=== PATIENT | female | born 1965 | race Caucasian/White ===

== ENCOUNTER 2016-10-28 05:36 | Outpatient (CLI) | payer OTHER ==
[~2016-10-28] VITALS: Ht 158.8 cm; Wt 61.2 kg
[2016-10-28] MEDS ORDERED: CITA10TA7 PO (12:30)
[2016-10-28] MEDS ORDERED: MONT10TA21 PO (12:30)
== END 2016-10-28 12:35 ==
LOC: PREOP 05:36
PROVIDERS: ATTEND Internal Medicine
DX: Z01.818 Encounter for other preprocedural examination (principal); Z12.11 Encounter for screening for malignant neoplasm of colon; Z83.71 Family history of colonic polyps

== ENCOUNTER 2016-10-30 07:33 | Day surgery (SDC) | payer OTHER ==
[~2016-10-30] VITALS: Ht 158.8 cm; Wt 61.2 kg
[~2016-10-30 07:33] MED LIST: CITA10TA7 PO; MONT10TA21 PO
[2016-10-30 07:45] VITALS: BP 127/74
--- NOTE | 2016-10-30 07:45 | Pre-Op Note & Conscious Sedat ---
Pre-Operative Progress Note H&P Reviewed The H&P was reviewed, patient examined and no changes noted. Date H&P Reviewed: Oct 30, 2016 Time H&P Reviewed: 07:45 Conscious Sedation Pre-Proced ASA Class: 1 Airway Mallampati Classification: ([place] appropriate class) I. II. III, IV Lungs Heart ASA score ASA 1: a normal healthy patient ASA 2: a patient with a mild systemic disease (mid diabetes, controlled hypertension, obesity ASA 3: a patient with a severe systemic disease that limits activity (angina , COPD, prior Myocardial infarction) ASA 4: a patient with an incapacitating disease that is a constant threat to life (CHF, renal failure) ASA 5: a moribund patient not expected to survive 24 hrs. (ruptured aneurysm) ASA 6: a declared brain patient whose organs are being harvested. For emergent operations, add the letter E after the classification Grade 2 Sedation Plan: Analgesia, Amnesia, Plan communicated to team members, Discussed options with patient/fam, Discussed risks with patient/fam Note The patient is an appropriate candidate to undergo the planned procedure, sedation, and anesthesia. The patient immediately re-assessed prior to indication. LINDEN PENNY MD Oct 30, 2016 07:45
[2016-10-30] MEDS ORDERED: 1/2 NS IV SOLUTION 1,000 ML IV PRN (08:00)
[2016-10-30] MEDS ORDERED: LIDOCAINE JELLY 2% (XYLOCAINE) 5 ML TUBE MM PRN (08:00)
[2016-10-30] MEDS ORDERED: 1/2 NS IV SOLUTION 1,000 ML IV ONE ×2 (08:10→08:43)
[2016-10-30] MEDS ORDERED: MIDAZOLAM 2 MG/2 ML (VERSED) VIAL ONE (08:39)
[2016-10-30] MEDS ORDERED: LIDOCAINE JELLY 2% (XYLOCAINE) 5 ML TUBE ONE (08:39)
[2016-10-30] MEDS ORDERED: fentaNYL INJECTION 100 MCG/2 ML AMP ONE ×2 (08:39→09:06)
[2016-10-30] MEDS: fentaNYL INJECTION 100 MCG/2 ML AMP IVP PRN ×3 (08:53→09:10)
[2016-10-30] MEDS: MIDAZOLAM 2 MG/2 ML (VERSED) VIAL IVP PRN ×2 (08:54→09:06)
[2016-10-30] MEDS ORDERED: ONDANSETRON 4 MG/2 ML (SDV) Z0FRAN ONE (09:07)
[2016-10-30] MEDS ORDERED: ONDANSETRON 4 MG/2 ML (SDV) Z0FRAN IVP PRN (09:10)
[2016-10-30 10:00] VITALS: BP 122/69
[2016-10-30 10:25] VITALS: BP 119/77
--- NOTE | 2016-11-02 01:33 | OPERATIVE REPORT ---
PROCEDURE PHYSICIAN: LINDEN PENNY DATE OF PROCEDURE: 10/30/2016 COLONOSCOPY SUMMARY: The patient underwent screening colonoscopy today. There is a reported family history for colon polyps, in this case being her mother. PROCEDURE: The patient was placed in lateral decubitus position. Prior to undergoing colonoscopy, digital rectal evaluation was performed. Anal sphincter tone was normal and the perianal reflex was intact. No abnormalities were noted to digital inspection of the anal canal or distal rectal vault. The colonoscope was then inserted into the rectum and under direct visualization, advanced to the cecum. The cecum was identified by identification of the ileocecal valve and cecal strap. Photographic documentation was obtained. Careful inspection was made as the colonoscope was withdrawn. FINDINGS: There was no evidence for internal or external hemorrhoids. The rectum was unremarkable. The sigmoid colon was unremarkable as well. Present in the proximal descending colon was a diminutive sessile polyp. It was photographed, biopsied and ablated, and submitted for histopathology with no subsequent blood loss. The splenic flexure and transverse colon were unremarkable. Present in the mid descending colon was another diminutive sessile polyp. It too was biopsied and cauterized with no subsequent blood loss. The tissue was submitted for histopathology. The remainder of the ascending colon and cecum were normal. ASSESSMENT: Two diminutive polyps were removed today; one from the proximal ascending colon and the other one from the mid ascending colon. This was an otherwise normal colonoscopy to the cecum. Repeat surveillance colonoscopy was a advocated in 5 years as long as there are no surprises on histopathology report. Sincerely, Job ID: [id number] Dictated Date: 10/30/2016 12:03:57 Special Education Coordinator Date: 11/02/2016 01:28:22 / derrick
--- OUTSIDE RECORDS SUMMARY | 2016-11-05 05:15 | XMS REPORT | Encounter Summary ---
Author Author [facility] Organization [facility] Address Unknown Phone Unavailable Care Team Providers Care Code Official Name Role Phone PCP Unavailable Reason for Visit * Reason Comments Asthma Encounter Details Date Type Department Care Team Description 09/28/2016 Office Visit [facility] Aubrey Denyn MD Chronic obstructive Physicians - Internal [address] asthma (HCC) (Primary Medicine [place] [address] Dx);Seasonal allergic [address] [place] [address] rhinitis due to pollen OFFICE [facility] [phone] [address] [place] [address] Social History Tobacco Use Types Packs/Day Years Used Date Never Smoker Smokeless Tobacco: Never Used Alcohol Use Drinks/Week oz/Week Comments Yes 0 Standard 0.0 occasional drinks or equivalent Sex Assigned at Date Recorded Not on file as of this encounter Last Filed Vital Signs Vital Sign Reading Time Taken Blood Pressure 124/74 09/28/2016 1:22 PM CDT Pulse 60 09/28/2016 1:22 PM CDT Temperature 36.6 C (97.8 F) 09/28/2016 1:22 PM CDT Respiratory Rate 16 09/28/2016 1:22 PM CDT Oxygen Saturation 98% 09/28/2016 1:22 PM CDT Inhaled Oxygen - - Concentration Weight 65.3 kg (144 lb) 09/28/2016 1:22 PM CDT Height 160 cm (5' 3") 09/28/2016 1:22 PM CDT Body Mass Index 25.51 09/28/2016 1:22 PM CDT in this encounter Instructions * Patient Instructions - Anusha Hines LPN - 09/28/2016 1:19 PM CDT It was a pleasure to see you today! My nurse is Anusha Hines RN. She can be reached at [phone]. Please contact my nurse with any signs and symptoms of worsening productive cough with thick secretions, blood in sputum, chest tightness/pain, shortness of breath, fever, chills, night sweats, or any questions or concerns For refills on medications, please have your pharmacy fax a refill authorization request form to our office at [phone]. Please allow at least 3 business days for refill requests. For urgent issues after business hours/weekends/holidays call [phone] and request for the glass installer to be paged. Stay on current symbicort dosing in this encounter Progress Notes * Aubrey Denny MD - 09/28/2016 1:19 PM CDT Formatting of this note may be different from the original. Date of Service: 09/28/2016 Subjective: Janet George is a 50 y.o. female. History of Present Illness I had the pleasure of following up for ongoing management of her asthma. Since her last visit she has been doing quite well. Her symptoms have settled down nicely. She is exercising well and is feeling quite normal. She continues taking Symbicort 2 puffs twice a day as directed. She does have some allergies and irritant to her nasal passages. She does have some slight increased drainage but overall feels like Xyzal is helping her allergy symptoms quite well. She denies nocturnal symptoms. She is not using albuterol hardly in any currently. She is very satisfied with her quality of life. Review of Systems Constitutional: Negative for fever, chills, activity change, fatigue and unexpected weight change. HENT: Negative for congestion and postnasal drip. Eyes: Negative for visual disturbance. Respiratory: See HPI Cardiovascular: Negative for chest pain, palpitations and leg swelling. Gastrointestinal: Negative for nausea, vomiting, abdominal pain, diarrhea and constipation. Endocrine: Negative for polyphagia and polyuria. Genitourinary: Negative for dysuria and hematuria. Musculoskeletal: Negative for joint swelling and arthralgias. Skin: Negative for rash. Allergic/Immunologic: Negative for immunocompromised state. Neurological: Negative for dizziness and syncope. Hematological: Negative for adenopathy. Does not bruise/bleed easily. Psychiatric/Behavioral: Negative for dysphoric mood. All other systems reviewed and are negative. Objective: albuterol 0.5% (PROVENTIL; VENTOLIN) 2.5 mg/0.5 mL nebulizer solution Inhale 2.5 mg solution by nebulizer as directed every 6 hours as needed for Shortness of Breath or Wheezing. ALBUTEROL IN Inhale 2 Puffs by mouth every 4 hours as needed. budesonide/formoterol (SYMBICORT) 160/4.5 mcg HFAA inhalation Inhale 2 Puffs by mouth into the lungs twice daily. citalopram (CELEXA) 10 mg tablet Take 10 mg by mouth daily. Levocetirizine (XYZAL) 5 mg tab Take 1 Tab by mouth daily. montelukast (SINGULAIR) 10 mg tablet Take 1 Tab by mouth at bedtime daily. Filed Vitals: 09/28/16 1322 BP: 124/74 Pulse: 60 Temp: 36.6 C (97.8 F) Resp: 16 Height: 160 cm (63") Weight: 65.318 kg (144 lb) SpO2: 98% Body mass index is 25.51 kg/(m^2). Physical Exam Constitutional: She is oriented to person, place, and time. She appears well- developed and well-nourished. No distress. HENT: Head: Normocephalic and atraumatic. Mouth/Throat: No oropharyngeal exudate. Eyes: Conjunctivae are normal. No scleral icterus. Neck: Normal range of motion. Neck supple. No JVD present. No tracheal deviation present. No thyromegaly present. Cardiovascular: Normal rate, regular rhythm and normal heart sounds. Exam reveals no gallop and no friction rub. No murmur heard. Pulmonary/Chest: Effort normal. No stridor. No respiratory distress. She has no wheezes. She has no rales. She exhibits no tenderness. Abdominal: Soft. Bowel sounds are normal. There is no tenderness. Musculoskeletal: Normal range of motion. She exhibits no edema or tenderness. Lymphadenopathy: She has no cervical adenopathy. Neurological: She is alert and oriented to person, place, and time. She exhibits normal muscle tone. Coordination normal. Skin: Skin is warm and dry. No rash noted. She is not diaphoretic. No erythema. Psychiatric: She has a normal mood and affect. Her behavior is normal. Judgment normal. Full pulmonary functions completed today: FVC 2.76 L 81%. FEV1 2.0 L 74%. Ratio 68%. Total lung capacity and diffusing capacity are normal. This is consistent with mild airflow obstruction. This markedly better than her previous FEV1 of 58% predicted. 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 I suspect she has a component of chronic airflow obstruction. As we have just been able to obtain control with current medical therapy, I hesitate to de-escalate her therapy at this time. I will keep her up 160/4.52 puffs twice a day for now. We will plan to de-escalate if she does well on return to clinic in 6 months. She will continue as needed albuterol. Seasonal allergies: She will continue Xyzal and Singulair as she is doing. History of sinus surgery: Some slight increase in her sinus symptoms which is likely irritant induced. She is not on nasal steroids at this time but we can consider in the future depending on how she does. I will plan to visit back with her in 6 months. Please do not hesitate call me if you have any additional questions or concerns. in this encounter Plan of Treatment Not on fileas of this encounter Visit Diagnoses Diagnosis Chronic obstructive asthma (HCC) - Primary Chronic obstructive asthma, unspecified Seasonal allergic rhinitis due to pollen in this encounter
--- OUTSIDE RECORDS SUMMARY | 2016-11-05 05:15 | XMS REPORT | Continuity of Care Document ---
Author Author [facility] Organization [facility] Address Unknown Phone Unavailable Allergies Active Description Code Type Severity Reaction Onset Reported/Identified Relationship to Patient Clinical Status Yes No Known Drug Allergies [id number] Drug Allergy Unknown N/ A 10/30/2016 Medications Problems Date Dx Coded Attending Type Code Diagnosis Diagnosed By 05/01/2014 Ot V76.12 07/09/2014 Ot V76.12 04/07/2016 Ot 959.11 OTH INJURY OF CHEST WALL 04/07/2016 Ot E000.9 UNSPECIFIED EXTERNAL CAUSE STATUS 04/07/2016 Ot E006.1 ACTIVITIES INVOLVING HORSEBACK RIDING 04/07/2016 Ot 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 04/07/2016 Ot E849.[address] NOS 04/07/2016 ZOLTAN VAZQUEZ Ot 789.04 ABDOMINAL PAIN, LEFT LOWER QUADRANT 04/07/2016 Ot V76.12 OTH SCREEN MAMMO-MALIGN NEOPLASM OF [place] 04/09/2016 DENG PLATA APRN Ot Z12.31 ENCNTR SCREEN MAMMOGRAM FOR MALIGNANT NE 04/13/2016 DENG PLATA APRN Ot Z12.31 ENCNTR SCREEN MAMMOGRAM FOR MALIGNANT NE 05/07/2016 DENG PLATA FUSING MACHINE FEEDER Ot Z12.31 ENCNTR SCREEN MAMMOGRAM FOR MALIGNANT NE 10/28/2016 LINDEN PENNY MD Ot Z01.818 ENCOUNTER FOR OTHER PREPROCEDURAL EXAMIN 10/28/2016 LINDEN PENNY MD Ot Z12.11 ENCOUNTER FOR SCREENING FOR MALIGNANT NE 10/28/2016 LINDEN PENNY MD Ot Z83.71 FAMILY HISTORY OF COLONIC POLYPS 10/29/2016 DENG PLATA APRN Ot Z12.31 ENCNTR SCREEN MAMMOGRAM FOR MALIGNANT NE 10/30/2016 DENG PLATA APRN Ot Z12.31 ENCNTR SCREEN MAMMOGRAM FOR MALIGNANT NE 10/31/2016 DENG PLATA APRN Ot Z12.31 ENCNTR SCREEN MAMMOGRAM FOR MALIGNANT NE 10/31/2016 Ot 959.11 OTH INJURY OF CHEST WALL 10/31/2016 Ot E000.9 UNSPECIFIED EXTERNAL CAUSE STATUS 10/31/2016 Ot E006.1 ACTIVITIES INVOLVING HORSEBACK RIDING 10/31/2016 Ot 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 10/31/2016 Ot E849.[address] NOS 10/31/2016 ZOLTAN VAZQUEZ PUBLIC RELATIONS COUNSELOR Ot 789.04 ABDOMINAL PAIN, LEFT LOWER QUADRANT 10/31/2016 Ot V76.12 OTH SCREEN MAMMO-MALIGN NEOPLASM OF [place] 11/02/2016 ROBIN MOHAMUD, FREYA Yanez Ot E86.0 DEHYDRATION 11/02/2016 ROBIN MOHAMUD, FREYA Yanez Ot F32.9 MAJOR DEPRESSIVE DISORDER, SINGLE EPISOD 11/02/2016 ROBIN MOHAMUD, FREYA Yanez Ot G40.909 EPILEPSY, UNSP, NOT INTRACTABLE, WITHOUT 11/02/2016 ROBIN MOHAMUD, FREYA Yanez Ot J45.909 UNSPECIFIED ASTHMA, UNCOMPLICATED 11/02/2016 ROBIN MOHAMUD, FREYA Yanez Ot R11.2 NAUSEA WITH VOMITING, UNSPECIFIED Procedures Results Test Result Range Complete blood count (CBC) with automated white blood cell (WBC) differential - 10/31/16 00:17 Blood leukocytes automated count (number/volume) 8.1 10*3/ uL 4.3-11.0 Blood erythrocytes automated count (number/volume) 5.06 10*6 /uL 4.35-5.85 Venous blood hemoglobin measurement (mass/volume) 13.2 g/dL 11.5-16.0 Blood hematocrit (volume fraction) 40 % 35-52 Automated erythrocyte mean corpuscular volume 79 [foz_us] 80-99 Automated erythrocyte mean corpuscular hemoglobin (mass per erythrocyte) 26 pg 25-34 Automated erythrocyte mean corpuscular hemoglobin concentration measurement ( mass/volume) 33 g/dL 32-36 Automated erythrocyte distribution width ratio 14.4 % 10.0-14.5 Automated blood platelet count (count/volume) 236 10*3/uL 130-400 Automated blood platelet mean volume measurement 11.1 [foz_ us] 7.4-10.4 Automated blood neutrophils/100 leukocytes 84 % 42-75 Automated blood lymphocytes/100 leukocytes 11 % 12-44 Blood monocytes/100 leukocytes 4 % 0-12 Automated blood eosinophils/100 leukocytes 0 % 0-10 Automated blood basophils/100 leukocytes 0 % 0-10 Blood neutrophils automated count (number/volume) 6.8 10*3 1.8-7.8 Blood lymphocytes automated count (number/volume) 0.9 10*3 1.0-4.0 Blood monocytes automated count (number/volume) 0.3 10*3 0.0-1.0 Automated eosinophil count 0.0 10*3/uL 0.0-0.3 Automated blood basophil count (count/volume) 0.0 10*3/uL 0.0-0.1 Comprehensive metabolic panel - 10/31/16 00:17 Serum or plasma sodium measurement (moles/volume) 138 mmol/ L 135-145 Serum or plasma potassium measurement (moles/volume) 3.8 mmol/L 3.6-5.0 Serum or plasma chloride measurement (moles/volume) 104 mmol /L 98-107 Carbon dioxide 22 mmol/L 21-32 Serum or plasma anion gap determination (moles/volume) 12 mmol/L 5-14 Serum or plasma urea nitrogen measurement (mass/volume) 10 mg/dL 7-18 Serum or plasma creatinine measurement (mass/volume) 0.69 mg /dL 0.60-1.30 Serum or plasma urea nitrogen/creatinine mass ratio 14 NRG Serum or plasma creatinine measurement with calculation of estimated glomerular filtration rate > NRG Serum or plasma glucose measurement (mass/volume) 89 mg/dL 70-105 Serum or plasma calcium measurement (mass/volume) 9.4 mg/dL 8.5-10.1 Serum or plasma total bilirubin measurement (mass/volume) 0.5 mg/dL 0.1-1.0 Serum or plasma alkaline phosphatase measurement (enzymatic activity/volume) 53 U/L 40-136 Serum or plasma aspartate aminotransferase measurement (enzymatic activity/ volume) 23 U/L 5-34 Serum or plasma alanine aminotransferase measurement (enzymatic activity/volume ) 16 U/L 0-55 Serum or plasma protein measurement (mass/volume) 8.0 g/dL 6.4-8.2 Serum or plasma albumin measurement (mass/volume) 4.3 g/dL 3.2-4.5 Serum or plasma amylase measurement (enzymatic activity/volume) - 10/31/16 00: 17 Serum or plasma amylase measurement (enzymatic activity/volume) 54 U/L 25-125 Lipase - 10/31/16 00:17 Lipase < U/L 8-78 Complete urinalysis with reflex to culture - 10/31/16 01:28 Urine color determination YELLOW NRG Urine clarity determination SLIGHTLY CLOUDY NRG Urine pH measurement by test strip 6 5- 9 Specific gravity of urine by test strip 1.025 1.016-1.022 Urine protein assay by test strip, semi-quantitative 2+ NEGATIVE Urine glucose detection by automated test strip NEGATIVE NEGATIVE Erythrocytes detection in urine sediment by light microscopy 2+ NEGATIVE Urine ketones detection by automated test strip 4+ NEGATIVE Urine nitrite detection by test strip NEGATIVE NEGATIVE Urine total bilirubin detection by test strip NEGATIVE NEGATIVE Urine urobilinogen measurement by automated test strip (mass/volume) NORMAL NORMAL Urine leukocyte esterase detection by dipstick 3+ NEGATIVE Automated urine sediment erythrocyte count by microscopy (number/high power field) RARE NRG Automated urine sediment leukocyte count by microscopy (number/high power field ) > [HPF] NRG Bacteria detection in urine sediment by light microscopy FEW NRG Squamous epithelial cells detection in urine sediment by light microscopy 0-2 NRG Crystals detection in urine sediment by light microscopy NONE NRG Casts detection in urine sediment by light microscopy NONE NRG Mucus detection in urine sediment by light microscopy SMALL NRG Complete urinalysis with reflex to culture YES NRG Bacterial urine culture - 10/31/16 01:28 Bacterial urine culture [id number] NR COLONY COUNT 10,000/ML - 100,000/ML NRG FTX;REPORTABLE SENSITIVITY REPORTED 11/02 07:40 NR FREE TEXT ENTRY 3 MIXED GRAM POSITIVE CRALIN NR Bacterial susceptibility panel - 10/31/16 01:28 Gentamicin susceptibility test by minimum inhibitory concentration <= NRG Trimethoprim/sulfamethoxazole susceptibility test by minimum inhibitoryconcentration <= NRG Ampicillin susceptibility test by minimum inhibitory concentration 4 NRG Tobramycin susceptibility test by minimum inhibitory concentration <= NRG Cefazolin susceptibility test by minimum inhibitory concentration <= NRG Ceftriaxone susceptibility test by minimum inhibitory concentration <= NRG Ampicillin/sulbactam susceptibility test by minimum inhibitory concentration <= NRG Piperacillin/tazobactam susceptibility test by minimum inhibitory concentration <= NRG Ciprofloxacin susceptibility test by minimum inhibitory concentration <= NRG Meropenem susceptibility test by minimum inhibitory concentration <= NRG Nitrofurantoin susceptibility test by minimum inhibitory concentration <= NRG Aztreonam susceptibility test by minimum inhibitory concentration <= NRG Extended spectrum beta lactamase (ESBL) producing bacteria susceptibility test by minimum inhibitory concentration - NRG Encounters ACCT No. Visit Date/Time Discharge Status Pt. Type Provider Facility Loc./Unit Complaint [id number] 10/30/2016 23:58:00 2016 02:13:00 DIS Outpatient FREYA KELLY MD [facility] ER POST OP COLONOSCOPY SICKNESS, THOM[place]ON,VOMITING' [id number] 10/30/2016 07:33:00 2016 10:35:00 DIS Outpatient LINDEN PENNY MD [facility] ENDO SCREENING COLO, FAMILY HX POLYPS [id number] 10/28/2016 05:36:00 2016 12:35:00 DIS Outpatient LINDEN PENNY MD [facility] PREOP SCREENING COLONOSCOPY [id number] 04/03/2013 11:07:00 2012 23:59:59 CLS Outpatient ZOLTAN VAZQUEZP [facility] RAD LLQ PAIN [id number] 04/07/2016 13:43:00 ACT Outpatient DENG PLATA APRN [facility] RAD YEARLY SCREENING MAMMO [id number] 06/15/2014 09:45:00 Document Registration [id number] 11/24/2011 15:25:00 Document Registration [id number] 08/18/2010 07:44:00 Document Registration
--- OUTSIDE RECORDS SUMMARY | 2016-11-05 05:15 | XMS REPORT | Encounter Summary ---
Author Author [facility] Organization [facility] Address Unknown Phone Unavailable Care Team Providers Care Global Sales Manager Name Role Phone PCP Unavailable Encounter Details Date Type Department Care Team Description 09/28/2016 Hospital [facility] Aubrey Denny MD Encounter Hospital Pulmonary [address] [facility] [address] [place] [address] [place] [address] [place] [address] [phone] Social History Tobacco Use Types Packs/Day Years Used Date Never Smoker Smokeless Tobacco: Never Used Alcohol Use Drinks/Week oz/Week Comments Yes 0 Standard 0.0 occasional drinks or equivalent Sex Assigned at Date Recorded Not on file as of this encounter Medications at Time of Discharge Medication Sig. Disp. Refills Start Date End Date albuterol 0.5% Inhale 2.5 mg solution by (PROVENTIL; VENTOLIN) 2.5 nebulizer as directed mg/0.5 mL nebulizer every 6 hours as needed solution for Shortness of Breath or Wheezing. ALBUTEROL IN Inhale 2 Puffs by mouth every 4 hours as needed. budesonide/formoterol Inhale 2 Puffs by mouth (SYMBICORT) 160/4.5 mcg into the lungs twice HFAA inhalation daily. citalopram (CELEXA) 10 mg Take 10 mg by mouth tablet daily. Levocetirizine (XYZAL) 5 Take 1 Tab by mouth 30 Tab 11 06/08/2016 mg tab daily. montelukast (SINGULAIR) Take 1 Tab by mouth at 30 Tab 11 03/20/2016 10 mg tablet bedtime daily. as of this encounter Plan of Treatment Not on fileas of this encounter Results * PFT COMPLETE PULM FUNCTION (09/28/2016 11:30 AM) Component Value Ref Range FVC-Pre 2.76 L FVC-%Pred-pre 81 % FEV1-Pre 2.00 L FEV1-%Pred-Pre 74 % [id number]-Vtn 1.38 L/sec [id number]-%Pred-Pre 51 % VCSVC-Pre 2.95 L ICSVC-Pre 2.59 L ERVSVC-Pre 0.36 L PEF-Pre 357.1 L/min TGVPleth-Pre 3.01 L RVPleth-Pre 2.39 L RVPleth-%Pred-Pre 136 % TLCPleth-Pre 4.98 L TLCPleth-%Pred-Pre 101 % DLCOunc-Pred 22.23 ml/min/mmHg DLCOunc-Pre 24.14 ml/min/mmHg DLCOunc-%Pred-Pre 108 % DLCOunc-SD 3.75 ml/min/mmHg DLCOunc-LLN 14.73 ml/min/mmHg DLCOunc-ULN 29.73 ml/min/mmHg DLCOunc-#SD 0.510 ml/min/mmHg DLVA-Pred 4.63 ml/min/mmHg/L DLVA-Pre 4.81 ml/min/mmHg/L DLVA-%Pred-Pre 103 % DLVA-SD 0.80 ml/min/mmHg/L DLVA-LLN 3.03 ml/min/mmHg/L DLVA-ULN 6.23 ml/min/mmHg/L DLVA-#SD 0.225 ml/min/mmHg/L Specimen Performing Laboratory [facility] [address] [place] [address] in this encounter Visit Diagnoses Diagnosis Obstructive chronic bronchitis (HCC) - Primary Obstructive chronic bronchitis without exacerbation in this encounter
--- OUTSIDE RECORDS SUMMARY | 2016-11-05 05:15 | XMS REPORT | Clinical Summary ---
Author Author [facility] Organization [facility] Address Unknown Phone Unavailable Care Team Providers Care Legal Instructor Name Role Phone PCP Unavailable Source Comments Some departments are not documenting in the electronic medical record. If you do not see the information that you expected, contact Release of Information in the Health Information Management department at [phone] for further assistance in locating additional records.[facility] Allergies No Known Allergies Current Medications Prescription Sig. Disp. Refills Start End Date Status Date citalopram (CELEXA) 10 mg Take 10 mg by mouth Active tablet daily. ALBUTEROL IN Inhale 2 Puffs by mouth Active every 4 hours as needed. budesonide/formoterol Inhale 2 Puffs by mouth Active (SYMBICORT) 160/4.5 mcg into the lungs twice HFAA inhalation daily. albuterol 0.5% Inhale 2.5 mg solution by Active (PROVENTIL; VENTOLIN) 2.5 nebulizer as directed mg/0.5 mL nebulizer every 6 hours as needed solution for Shortness of Breath or Wheezing. montelukast (SINGULAIR) Take 1 Tab by mouth at 30 Tab 11 03/20/20 Active 10 mg tablet bedtime daily. 16 Levocetirizine (XYZAL) 5 Take 1 Tab by mouth 30 Tab 11 06/08/19 Active mg tab daily. 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 Nasal obstruction 09/23/2015 Resolved Problems Problem Noted Date Resolved Date CAP (community acquired pneumonia) 03/20/2016 06/08/2016 Encounters Date Type Specialty Care Team Description 09/28/2016 Office Visit Pulmonology Aubrey Denny MD Chronic obstructive asthma (HCC) (Primary Dx);Seasonal allergic rhinitis due to pollen 09/28/2016 Hospital Aubrey Denny MD Encounter from Last 3 Months Family History Medical History Relation Name Comments Heart Attack Father Seizures Father Asthma Mother Stroke Mother Diabetes Paternal Grandfather Relation Name Status Comments Father Mother Paternal Grandfather Social History Tobacco Use Types Packs/Day Years Used Date Never Smoker Smokeless Tobacco: Never Used Alcohol Use Drinks/Week oz/Week Comments Yes 0 Standard 0.0 occasional drinks or equivalent Sex Assigned at Date Recorded Not on file Last Filed Vital Signs Vital Sign Reading [...] Mass Index 25.51 09/28/2016 1:22 PM CDT Plan of Treatment Health Maintenance Due Date Last Done Comments PHYSICAL (COMPREHENSIVE) 1972 EXAM PERTUSSIS VACCINE 1976 TETANUS VACCINE 1982 CERVICAL CANCER SCREENING 11/06/1995 BREAST CANCER SCREENING 2005 COLORECTAL CANCER 11/06/2015 SCREENING INFLUENZA VACCINE 12/11/2016 Results * PFT COMPLETE PULM FUNCTION (09/28/2016 11:30 AM) Component Value Ref Range FVC-Pre 2.76 L FVC-%Pred-pre 81 % FEV1-Pre 2.00 L FEV1-%Pred-Pre 74 % VNW3740-Arm 1.38 L/sec HUU0802-%Pred-Pre 51 % VCSVC-Pre 2.95 L ICSVC-Pre 2.59 [...] Specimen Performing Laboratory [facility] [address] [place] [address] from Last 3 Months
[2016-11-05] MEDS ORDERED: CIPR-225 PO (12:56)
--- NOTE | 2016-11-13 17:13 | History & Physical-Hospitalist ---
HPI History of Present Illness: HPI/Chief Complaint Janet is a 51-year-old white female referred by Dr. Bai for screening colonoscopy. She reports that her mother did have a history of colon polyps noted on colonoscopy in her 60s. She's not aware of any family history for colon cancer. He denies any bowel habit change and this noted no blood in her stool. She has no past history of cardiovascular or pulmonary disease. Family history of the above-noted colon polyps her mother is living at the age of 77 had a cerebrovascular accident at the age of 74. Father is living at age of 78 with a history of epilepsy and coronary artery disease the age of 75-year- old bypass surgery. Medications include Singulair and inhaler as well as citalopram. Date Seen 10/14/16 Time Seen by Provider: 10:30 Attending Physician Parminder Townsend MD PCP No,Local Physician Referring Physician Date of Admission Home Medications & Allergies Home Medications Reviewed patient Home Medication Reconciliation Form Allergies Allergies Coded Allergies No Known Drug Allergies (Verified10/30/16) Past Qmogpvc-Gzeysi-Qouskt Hx Patient Social History Alcohol Use: Rarely Uses Recreational Drug Use: No Smoking Status: Never a Smoker Recent Foreign Travel: No Contact w/other who traveled: No Recent Hopitalizations: No Recent Infectious Disease Expo: No Immunizations Up To Date Date of Pneumonia Vaccine: Oct 28, 2006 Date of Influenza Vaccine: Jan 20, 2016 Seasonal Allergies Seasonal Allergies: Yes Surgeries HX Surgeries: Yes (SEPTOPLASTY, SINUS, CS X2, BREAST AUGMENTATION) Surgeries: Section Respiratory Hx Respiratory Disorders: Yes Cardiovascular Hx Cardiovascular Disorders: No Neurological Hx 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) Neurological Disorders: Seizure Disorder Reproductive System Hx Reproductive Disorders: No Sexually Transmitted Disease: No HIV/AIDS: No Genitourinary Hx Genitourinary Disorders: No Gastrointestinal Hx Gastrointestinal Disorders: No Musculoskeletal Hx Musculoskeletal Disorders: No Endocrine Hx Endocrine Disorders: No HEENT HX ENT Disorders: No Loss of Vision: Denies Hearing Impairment: Denies Cancer Hx Cancer: No Psychosocial Hx Psychiatric Problems: Yes Behavioral Health Disorders: Depression Integumentary HX Skin/Integumentary Disorder: No Blood Transfusions Hx Blood Disorders: No Adverse Reaction to a Blood Tr: No (N/A) Review of Systems Constitutional: no symptoms reported, see HPI Respiratory: no symptoms reported, see HPI, No cough, No dyspnea on exertion, No hemoptysis, No orthopnea, No phlegm, No short of breath, No stridor, No wheezing, No other Cardiovascular: no symptoms reported, see HPI, No chest pain, No edema, No Hx of Intervention, No palpitations, No syncope, No vascular heart diseas, No other Gastrointestinal: see HPI Physical Exam Physical Exam Vital Signs Capillary Refill : General Appearance: No Apparent Distress, WD/WN HEENT: PERRL/EOMI, Normal ENT Inspection, Pharynx Normal Neck: Full Range of Motion, Normal Inspection, Non Tender, Supple, Carotid Bruit Respiratory: Chest Non Tender, Lungs Clear, Normal Breath Sounds, No Accessory Muscle Use, No Respiratory Distress Cardiovascular: Regular Rate, Rhythm, No Edema, No Gallop, No JVD, No Murmur, Normal Peripheral Pulses Gastrointestinal: Normal Bowel Sounds, No Organomegaly, No Pulsatile Mass, Non Tender, Soft Extremity: Normal Inspection, Normal Range of Motion, Non Tender, No Calf Tenderness, No Pedal Edema Assessment/Plan Admission Diagnosis 1. Patient was set up for screening colonoscopy with suprapubic. Prep instructions were given and questions were answered. With review of her electronic medical record 40 minutes of care time was spent by myself another 15 minutes of stap time in going over prep instructions and setting up colonoscopy. I thank you for the referral this pleasant lady since early PARMINDER Dallas M.D., MD Nov 13, 2016 17:13
== END 2016-10-30 10:35 | disposition home or self-care (01) ==
LOC: ENDO 07:33
PROVIDERS: ATTEND Internal Medicine
DX: Z12.11 Encounter for screening for malignant neoplasm of colon (principal); D12.2 Benign neoplasm of ascending colon; D12.4 Benign neoplasm of descending colon; Z86.010 Personal history of colon polyps; Z83.71 Family history of colonic polyps; G40.909 Epilepsy, unspecified, not intractable, without status epilepticus; F32.9 Major depressive disorder, single episode, unspecified
CPT/HCPCS: 88305

== ENCOUNTER 2016-10-30 23:55 | Emergency (ER) | payer OTHER ==
[~2016-10-30] VITALS: Ht 160 cm; Wt 61.2 kg
[2016-10-31] MEDS ORDERED: NS IV 1000 ML 1,000 ML IV STA (00:14)
[2016-10-31] MEDS ORDERED: ONDANSETRON 4 MG/2 ML (SDV) Z0FRAN IVP ONE ×2 (00:15→00:30)
[2016-10-31 00:28] LABS: BASOPHILS % (AUTO) 0 % (0-10); EOSINOPHILS % (AUTO) 0 % (0-10); LYMPHOCYTES # (AUTO) 0.9 X 10^3 (1.0-4.0); LYMPHOCYTES % (AUTO) 11 % (12-44); MEAN CORPUSCULAR HEMOGLOBIN 26 PG (25-34); MEAN CORPUSCULAR HGB CONC 33 G/DL (32-36); MEAN CORPUSCULAR VOLUME 79 FL (80-99); MEAN PLATELET VOLUME 11.1 FL (7.4-10.4); MONOCYTES # (AUTO) 0.3 X 10^3 (0.0-1.0); MONOCYTES % (AUTO) 4 % (0-12); NEUTROPHILS # (AUTO) 6.8 X 10^3 (1.8-7.8); NEUTROPHILS % (AUTO) 84 % (42-75); PLATELET COUNT 236 10^3/uL (130-400); RED BLOOD COUNT 5.06 10^6/uL (4.35-5.85); RED CELL DISTRIBUTION WIDTH 14.4 % (10.0-14.5); WHITE BLOOD COUNT 8.1 10^3/uL (4.3-11.0)
--- NOTE | 2016-10-31 00:48 | ED Abdominal Pain ---
General Chief Complaint: Abdominal/GI Problems Stated Complaint: POST OP CHOLENOSCOPY SICKNESS,[place],VOMITING Nursing Triage Note: PT TO ED 5 W/ C/O N/V ONSET AFTER HAVING COLONOSCOPY TODAY AT THIS FACILITY BY DR PENNY. DOES REPORT A SMALL BM SINCE SCOPE. NO OTHER C/O VOICED Sepsis Screen: No Definite Risk Source of Information: Patient Exam Limitations: No Limitations History of Present Illness Time Seen By Provider: 00:25 Initial Comments Here with report of nausea and vomiting that has persisted since recovered from colonoscopy earlier today. Typically has problems after anesthesia. She has not been unable to tolerate any by mouth medicines or fluids. Denies any significant abdominal discomfort. Did have small BM later today. Timing/Duration: 12 Hours Severity/Quality: Moderate, Other (nausea and vomiting) Location: Generalized Abdomen Radiation: No Radiation Activities at Onset: None Modifying Factors: Worsens With Eating, Improves With Resting Associated Symptoms: No Back Pain, No Chest Pain, No Fever/Chills, Nausea/ Vomiting, No Shortness of Air, No Weakness Allergies and Home Medications Allergies Coded Allergies: No Known Drug Allergies (Verified , 10/30/16) Home Medications Citalopram Hydrobromide 10 Mg Tablet, 10 MG PO DAILY, (Reported) Montelukast Sodium 10 Mg Tablet, 10 MG PO DAILY, (Reported) Review of Systems Constitutional: see HPI, No chills, No fever EENTM: No Symptoms Reported Respiratory: No Symptoms Reported Cardiovascular: No Symptoms Reported Gastrointestinal: See HPI, Denies Abdominal Pain, Nausea, Vomiting Genitourinary: No Symptoms Reported Musculoskeletal: no symptoms reported Psychiatric/Neurological: No Symptoms Reported All Other Systems Reviewed Negative Unless Noted: Yes Past Xoarynk-Flldew-Neqcoi Hx Patient Social History Alcohol Use: Denies Use Recreational Drug Use: No Smoking Status: Never a Smoker Recent Foreign Travel: No Contact w/Someone Who Travel: No Recent Infectious Disease Expo: No Recent Hopitalizations: No Immunizations Up To Date Date of Pneumonia Vaccine: Oct 28, 2006 Date of Influenza Vaccine: Jan 20, 2016 Seasonal Allergies Seasonal Allergies: Yes Surgeries HX Surgeries: Yes (SEPTOPLASTY, SINUS, CS X2, BREAST AUGMENTATION) Surgeries: Section Respiratory Hx Respiratory Disorders: Yes Respiratory Disorders: Asthma, Pneumonia Cardiovascular Hx Cardiac Disorders: No Neurological Hx 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) Neurological Disorders: Seizure Disorder Reproductive System Hx Reproductive Disorders: No Sexually Transmitted Disease: No HIV/AIDS: No Genitourinary Hx Genitourinary Disorders: No Gastrointestinal Hx Gastrointestinal Disorders: No Musculoskeletal Hx Musculoskeletal Disorders: No Endocrine Hx Endocrine Disorders: No HEENT HX ENT Disorders: No Loss of Vision: Denies Hearing Impairment: Denies Cancer Hx Cancer: No Psychosocial Hx Psychiatric Problems: Yes Behavioral Health Disorders: Depression Integumentary HX Skin/Integumentary Disorder: No Blood Transfusions Hx Blood Disorders: No Adverse Reaction to a Blood Tr: No (N/A) Reviewed Nursing Assessment Reviewed/Agree w Nursing PMH: Yes Family Medical History Significant Family History: No Pertinent Family Hx Physical Exam Vital Signs VS - Last 72 Hours, by Label 10/31/16 00:00 Temp 96.4 Pulse 71 Resp 20 B/P (MAP) 148/85 Pulse Ox 99 O2 Delivery Room Air Capillary Refill : Less Than 3 Seconds General Appearance: WD/WN, no apparent distress HEENT: PERRL/EOMI, pharynx normal Neck: full range of motion, supple Respiratory: lungs clear, normal breath sounds Cardiovascular: regular rate, rhythm, no murmur Gastrointestinal: non tender, soft Extremities: non-tender, normal inspection Back: normal inspection, no CVA tenderness, no vertebral tenderness Neurologic/Psychiatric: alert, oriented x 3 Skin: normal color, warm/dry Progress/Results/Core Measures Results/Orders Lab Results Laboratory Tests Test 10/31/16 00:17 10/31/16 01:28 Range/Units White Blood Count 8.1 4.3-11.0 10^3/uL Red Blood Count 5.06 4.35-5.85 10^6/uL Hemoglobin 13.2 11.5-16.0 G/DL Hematocrit 40 35-52 % Mean Corpuscular Volume 79 L 80-99 FL Mean Corpuscular Hemoglobin 26 25-34 PG Mean Corpuscular Hemoglobin Concent 33 32-36 G/DL Red Cell Distribution Width 14.4 10.0-14.5 % Platelet Count 236 130-400 10^3/uL Mean Platelet Volume 11.1 H 7.4-10.4 FL Neutrophils (%) (Auto) 84 H 42-75 % Lymphocytes (%) (Auto) 11 L 12-44 % Monocytes (%) (Auto) 4 0-12 % Eosinophils (%) (Auto) 0 0-10 % Basophils (%) (Auto) 0 0-10 % Neutrophils # (Auto) 6.8 1.8-7.8 X 10^3 Lymphocytes # (Auto) 0.9 L 1.0-4.0 X 10^3 Monocytes # (Auto) 0.3 0.0-1.0 X 10^3 Eosinophils # (Auto) 0.0 0.0-0.3 10^3/uL Basophils # (Auto) 0.0 0.0-0.1 10^3/uL Sodium Level 138 135-145 MMOL/L Potassium Level 3.8 3.6-5.0 MMOL/L Chloride Level 104 98-107 MMOL/L Carbon Dioxide Level 22 21-32 MMOL/L Anion Gap 12 5-14 MMOL/L Blood Urea Nitrogen 10 7-18 MG/DL Creatinine 0.69 0.60-1.30 MG/DL Estimat Glomerular Filtration Rate > 60 BUN/Creatinine Ratio 14 Glucose Level 89 70-105 MG/DL Calcium Level 9.4 8.5-10.1 MG/DL Total Bilirubin 0.5 0.1-1.0 MG/DL Aspartate Amino Transf (AST/SGOT) 23 5-34 U/L Alanine Aminotransferase (ALT/SGPT) 16 0-55 U/L Alkaline Phosphatase 53 40-136 U/L Total Protein 8.0 6.4-8.2 GM/DL Albumin 4.3 3.2-4.5 GM/DL Amylase Level 54 25-125 U/L Lipase < 4 L 8-78 U/L My Orders Orders - FREYA KELLY MD Amylase (10/31/16 00:14) Cbc With Automated Diff (10/31/16 00:14) Comprehensive Metabolic Panel (10/31/16 00:14) Lipase (10/31/16 00:14) Ua Culture If Indicated (10/31/16 00:14) Ondansetron Injection (Zofran Injectio (10/31/16 00:15) Ns Iv 1000 Ml (Sodium Chloride 0.9%) (10/31/16 00:14) Saline Lock/Iv-Start (10/31/16 00:14) Ondansetron Injection (Zofran Injectio (10/31/16 00:30) Ketorolac Injection (Toradol Injection) (10/31/16 01:07) Ns Iv 1000 Ml (Sodium Chloride 0.9%) (10/31/16 01:07) Medications Given in ED Current Medications Medications Dose Ordered Sig/Juan F Route Start Time Stop Time Status Last Admin Dose Admin Ondansetron HCl 4 mg ONCE ONCE IVP 10/31/16 00:15 10/31/16 00:16 DC 10/31/16 00:31 4 MG Ondansetron HCl 4 mg ONCE ONCE IVP 10/31/16 00:30 10/31/16 00:31 DC 10/31/16 00:31 4 MG Sodium Chloride 1,000 ml @ 0 mls/hr Q0M ONCE IV 10/31/16 01:07 10/31/16 01:09 DC 10/31/16 01:30 1,000 MLS/HR Vital Signs/I&O Vital Sign - Last 12Hours 10/31/16 00:00 Temp 96.4 Pulse 71 Resp 20 B/P (MAP) 148/85 Pulse Ox 99 O2 Delivery Room Air Blood Pressure Mean: 106 Progress Note : Progress Note Seen and evaluated. IV, labs, normal saline 1 L bolus, Zofran 8 mg IV ordered. Repeat normal saline 1 L bolus and Toradol 30 mg IV given for headache. 0142 overall improving. Discharged home with return precautions. Patient verbalize understanding instructions and agreement with plan. Departure Impression Impression: Primary Impression: Nausea and vomiting Qualified Codes: R11.2 - Nausea with vomiting, unspecified Additional Impression: Dehydration Disposition: 01 HOME, SELF-CARE Condition: Improved Departure-Patient Inst. Decision time for Depature: 01:43 Referrals: NO,LOCAL PHYSICIAN (PCP/Family) Primary Care Physician Patient Instructions: Dehydration, Adult (DC), Nausea and Vomiting, Adult (DC) Add. Discharge Instructions: All discharge instructions reviewed with patient and/or family. Voiced understanding. Take medications as directed. Follow-up with your Dr. in a few days for recheck. Clear liquid diet for 24 hours and then advance as tolerated. Return for worsening, fever, vomiting, weakness, breathing problems or other concerns as needed. FREYA KELLY MD Oct 31, 2016 00:48
[2016-10-31 00:51] LABS: ALANINE AMINOTRANSFERASE 16 U/L (0-55); ALBUMIN 4.3 GM/DL (3.2-4.5); AMYLASE 54 U/L (25-125); ANION GAP 12 MMOL/L (5-14); ASPARTATE AMINO TRANSFERASE 23 U/L (5-34); BILIRUBIN,TOTAL 0.5 MG/DL (0.1-1.0); BLOOD UREA NITROGEN 10 MG/DL (7-18); BUN/CREATININE RATIO 14; CALCIUM 9.4 MG/DL (8.5-10.1); CARBON DIOXIDE 22 MMOL/L (21-32); CHLORIDE 104 MMOL/L (98-107); CREATININE SERUM 0.69 MG/DL (0.60-1.30); GFR ESTIMATED > 60; GLUCOSE 89 MG/DL (70-105); LIPASE < 4 U/L (8-78); POTASSIUM 3.8 MMOL/L (3.6-5.0); SODIUM 138 MMOL/L (135-145)
[2016-10-31] MEDS ORDERED: KETOROLAC 30 MG/ML VIAL IVP STA (01:07)
[2016-10-31] MEDS ORDERED: NS IV 1000 ML 1,000 ML IV ONE (01:07)
[2016-10-31 01:41] LABS: BILIRUBIN,URINE NEGATIVE (NEGATIVE); KETONES,URINE 4+ (NEGATIVE); LEUKOCYTE ESTERASE ,URINE 3+ (NEGATIVE); NITRITE,URINE NEGATIVE (NEGATIVE); PH,URINE 6 (5-9); PROTEIN,URINE 2+ (NEGATIVE); UROBILINOGEN,URINE NORMAL (NORMAL)
[2016-10-31] MEDS ORDERED: RX-ONDANSETRON 4 MG ODT (ZOFRAN) PPK #4 PO STA (01:44)
[2016-10-31 01:49] LABS: WBC,URINE >100 /HPF
[2016-10-31 01:50] LABS: SQUAMOUS EPITHELIAL CELL,UR 0-2 /HPF
[2016-10-31 02:13] VITALS: BP 129/80
== END 2016-10-31 02:13 | disposition home or self-care (01) ==
LOC: EDUNIT# 23:55 → ER 23:58
DX: R11.2 Nausea with vomiting, unspecified (principal); E86.0 Dehydration; J45.909 Unspecified asthma, uncomplicated; G40.909 Epilepsy, unspecified, not intractable, without status epilepticus; F32.9 Major depressive disorder, single episode, unspecified
CPT/HCPCS: 36415; 80053; 81000; 82150; 83690; 85025; 87088; 87186; 96361; 96374; 96375

== ENCOUNTER → 2018-02-08 | Outpatient (CLI) | payer BC, OTHER ==
[~2018-02-08] MED LIST changes: +CIPR-225 PO
--- NOTE | 2018-02-08 12:56 | Diagnostic Imaging Report ---
INDICATION: Routine screening. COMPARISON: 04/07/2016 and 06/15/2014. TECHNIQUE: 2D and 3D bilateral screening mammography was performed with CAD. FINDINGS: Bilateral breast implants are again noted. The implant contours appear smooth. The breasts are heterogeneously dense, limiting the sensitivity of mammography. The parenchymal pattern appears stable. No mass or malignant appearing microcalcifications are seen. The axillae are unremarkable. IMPRESSION: No mammographic features suspicious for malignancy are identified. ACR BI-RADS Category 2: Benign findings. Result letter will be mailed to the patient. Note: At least 10% of breast cancer is not imaged by mammography. Dictated by: Dictated on workstation # [id number]
== END ==
LOC: RAD 11:14
PROVIDERS: ATTEND Obstetrics & Gynecology
DX: Z12.31 Encounter for screening mammogram for malignant neoplasm of breast (principal)
CPT/HCPCS: 77067

== ENCOUNTER → 2018-03-02 | Outpatient (CLI) | payer BC | LOC: CARD 15:11 | PROVIDERS: ATTEND Surgery Plastic and Reconstructive Surgery | DX: Z01.810 Encounter for preprocedural cardiovascular examination (principal) | CPT/HCPCS: 93005 ==

== ENCOUNTER 2019-02-28 13:41 | Emergency (ER) | payer BC ==
[~2019-02-28] VITALS: Ht 160 cm; Wt 59.0 kg
[2019-02-28 14:51] LABS: BASOPHILS % (AUTO) 0 % (0-10); EOSINOPHILS % (AUTO) 0 % (0-10); HEMATOCRIT 40 % (35-52); HEMOGLOBIN 13.2 G/DL (11.5-16.0); LYMPHOCYTES # (AUTO) 1.6 X 10^3 (1.0-4.0); LYMPHOCYTES % (AUTO) 13 % (12-44); MEAN CORPUSCULAR HEMOGLOBIN 27 PG (25-34); MEAN CORPUSCULAR HGB CONC 33 G/DL (32-36); MEAN CORPUSCULAR VOLUME 80 FL (80-99); MEAN PLATELET VOLUME 10.8 FL (7.4-10.4); MONOCYTES # (AUTO) 0.5 X 10^3 (0.0-1.0); MONOCYTES % (AUTO) 4 % (0-12); NEUTROPHILS # (AUTO) 9.6 X 10^3 (1.8-7.8); NEUTROPHILS % (AUTO) 82 % (42-75); PLATELET COUNT 239 10^3/uL (130-400); RED CELL DISTRIBUTION WIDTH 15.1 % (10.0-14.5); WHITE BLOOD COUNT 11.7 10^3/uL (4.3-11.0)
[2019-02-28 15:10] LABS: ALANINE AMINOTRANSFERASE 14 U/L (0-55); ALBUMIN 4.4 GM/DL (3.2-4.5); ALKALINE PHOSPHATASE 55 U/L (40-136); BILIRUBIN,TOTAL 0.3 MG/DL (0.1-1.0); BUN/CREATININE RATIO 12; CALCIUM 9.3 MG/DL (8.5-10.1); CARBON DIOXIDE 28 MMOL/L (21-32); CHLORIDE 104 MMOL/L (98-107); CREATININE SERUM 0.77 MG/DL (0.60-1.30); GFR ESTIMATED > 60; GLUCOSE 101 MG/DL (70-105); MAGNESIUM 2.1 MG/DL (1.6-2.4); POTASSIUM 3.9 MMOL/L (3.6-5.0); SODIUM 141 MMOL/L (135-145); TOTAL PROTEIN 7.7 GM/DL (6.4-8.2)
--- NOTE | 2019-02-28 15:20 | NUR ---
PT HAS BEEN ASLEEP.
[2019-02-28 15:35] LABS: BILIRUBIN,URINE NEGATIVE (NEGATIVE); CLARITY,URINE CLEAR; COLOR,URINE YELLOW; GLUCOSE, URINE (UA) NEGATIVE (NEGATIVE); KETONES,URINE NEGATIVE (NEGATIVE); LEUKOCYTE ESTERASE ,URINE NEGATIVE (NEGATIVE); NITRITE,URINE NEGATIVE (NEGATIVE); PH,URINE 8.5 (5-9); PROTEIN,URINE NEGATIVE (NEGATIVE)
[2019-02-28 15:51] LABS: AMORPHOUS SEDIMENT,UR MOD AMOR PHOSPHATE /LPF; BACTERIA,URINE NEGATIVE /HPF; SQUAMOUS EPITHELIAL CELL,UR RARE /HPF
[2019-02-28] MEDS ORDERED: LEVE500T99 PO (16:43)
--- NOTE | 2019-02-28 16:43 | ED Neurological Problem ---
General Chief Complaint: Neurological Problems Stated Complaint: POSS SEIZURE Nursing Triage Note: PT STATES SHE TOOK HER SON TO SCHOOL THIS A.M. BUT DOES NOT REMEMBER A LOT OF WHAT ALL SHE DID, REMEMBERS GOING TO THE GROUND AT ONE POINT BUT FELT LIKE SHE "CAME TO" WALKING AROUND HER BARN CHECKING ON HER HORSES. DOES HAVE A CUT ON LOWER LIP, WALKED ABOUT 1/4 MILE BACK TO HER HOUSE WITHOUT SHOES ON. HX OF A SEIZURE IN 1999, DOES NOT CURRENTLY TAKE SEIZURE MEDS. Nursing Sepsis Screen: No Definite Risk Source: patient Exam Limitations: no limitations History of Present Illness Date Seen by Provider: Feb 28, 2019 Time Seen by Provider: 14:36 Initial Comments This 53-year-old woman presents to the emergency room with concerns that she may have had a seizure. She took her son to school but has poor recollection of doing so. She then went home and walked to her barn to check on the horses. She thinks she remembers dropping to her knees but then has a lapse of memory. She somehow walked back to the house without her shoes on but does not remember that. It is approximately a quarter mile from the barn to the house. She has a small contusion on the mucosal surface of her lower lip with intervention of her braces. She denies any drug or alcohol use. She has a fading headache. She denies any recent illnesses but has had significant psychosocial stresses recently. She feels fatigued. She reports having one prior similar episode in 1999 which was diagnosed as seizure. She saw Dr. Dunbar with neurology at [facility]. She took Lamictal for 4 years and eventually stopped. She has had no other seizure-like episodes until today. She notes that she went to a concert on Wednesday with significant light and sound stimulation. She denies any chest pain or shortness of breath. Allergies and Home Medications Allergies Coded Allergies: No Known Drug Allergies (Verified , 10/30/16) Home Medications Ciprofloxacin HCl 500 Mg Tablet, 500 MG PO BID, (Reported) Citalopram Hydrobromide 10 Mg Tablet, 10 MG PO DAILY, (Reported) Levetiracetam 500 Mg Tablet, 500 MG PO BID Prescribed by: MICHAEL LEZAMA on 02/28/19 2242 Montelukast Sodium 10 Mg Tablet, 10 MG PO DAILY, (Reported) Patient Home Medication List Home Medication List Reviewed: Yes Review of Systems Review of Systems Constitutional: no symptoms reported Eyes: No Symptoms Reported Ears, Nose, Mouth, Throat: see HPI Respiratory: no symptoms reported Cardiovascular: no symptoms reported Gastrointestinal: no symptoms reported Genitourinary: no symptoms reported : No Musculoskeletal: no symptoms reported Skin: see HPI Psychiatric/Neurological: See HPI Endocrine: No Symptoms Reported Hematologic/Lymphatic: No Symptoms Reported Past Smsqqry-Bvdtna-Qwfgft Hx Past Med/Social Hx: Reviewed Nursing Past Med/Soc Hx Patient Social History Alcohol Use: Rarely Uses Recreational Drug Use: No Smoking Status: Never a Smoker Recent Foreign Travel: No Contact w/Someone Who Travel: No Recent Infectious Disease Expo: No Recent Hopitalizations: No Physical Abuse: No Sexual Abuse: No Immunizations Up To Date Date of Pneumonia Vaccine: Oct 28, 2006 Date of Influenza Vaccine: Jan 20, 2016 Seasonal Allergies Seasonal Allergies: Yes Past Medical History Surgeries: Yes (SEPTOPLASTY, SINUS, CS X2, BREAST AUGMENTATION) Breast, Section Respiratory: Yes Asthma, Pneumonia Cardiac: No Neurological: Yes ([facility]-2000) Seizure Disorder : No Reproductive Disorders: No 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 0.0oz. 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, no motor/sensory deficits, alert, normal mood/affect, oriented x 3 Crainal Nerves: normal hearing, normal speech, PERRL Coordination/Gait: normal finger to nose (Normal heel to mcpherson), normal gait Motor/Sensory: no motor deficit, no sensory deficit Skin: normal color, warm/dry Progress/Results/Core Measures Results/Orders Lab Results Laboratory Tests Test 02/28/19 14:40 02/28/19 15:28 Range/Units White Blood Count 11.7 H 4.3-11.0 10^3/uL Red Blood Count 4.91 4.35-5.85 10^6/uL Hemoglobin 13.2 11.5-16.0 G/DL Hematocrit 40 35-52 % Mean Corpuscular Volume 80 80-99 FL Mean Corpuscular Hemoglobin 27 25-34 PG Mean Corpuscular Hemoglobin Concent 33 32-36 G/DL Red Cell Distribution Width 15.1 H 10.0-14.5 % Platelet Count 239 130-400 10^3/uL Mean Platelet Volume 10.8 H 7.4-10.4 FL Neutrophils (%) (Auto) 82 H 42-75 % Lymphocytes (%) (Auto) 13 12-44 % Monocytes (%) (Auto) 4 0-12 % Eosinophils (%) (Auto) 0 0-10 % Basophils (%) (Auto) 0 0-10 % Neutrophils # (Auto) 9.6 H 1.8-7.8 X 10^3 Lymphocytes # (Auto) 1.6 1.0-4.0 X 10^3 Monocytes # (Auto) 0.5 0.0-1.0 X 10^3 Eosinophils # (Auto) 0.0 0.0-0.3 10^3/uL Basophils # (Auto) 0.0 0.0-0.1 10^3/uL Sodium Level 141 135-145 MMOL/L Potassium Level 3.9 3.6-5.0 MMOL/L Chloride Level 104 98-107 MMOL/L Carbon Dioxide Level 28 21-32 MMOL/L Anion Gap 9 5-14 MMOL/L Blood Urea Nitrogen 9 7-18 MG/DL Creatinine 0.77 0.60-1.30 MG/DL Estimat Glomerular Filtration Rate > 60 BUN/Creatinine Ratio 12 Glucose Level 101 70-105 MG/DL Calcium Level 9.3 8.5-10.1 MG/DL Corrected Calcium 9.0 8.5-10.1 MG/DL Magnesium Level 2.1 1.6-2.4 MG/DL Total Bilirubin 0.3 0.1-1.0 MG/DL Aspartate Amino Transf (AST/SGOT) 21 5-34 U/L Alanine Aminotransferase (ALT/SGPT) 14 0-55 U/L Alkaline Phosphatase 55 40-136 U/L Total Protein 7.7 6.4-8.2 GM/DL Albumin 4.4 3.2-4.5 GM/DL Urine Color YELLOW Urine Clarity CLEAR Urine pH 8.5 5-9 Urine Specific [place] 1.015 L 1.016-1.022 Urine Protein NEGATIVE NEGATIVE Urine Glucose (UA) NEGATIVE NEGATIVE Urine Ketones NEGATIVE NEGATIVE Urine Nitrite NEGATIVE NEGATIVE Urine Bilirubin NEGATIVE NEGATIVE Urine Urobilinogen 0.2 < = 1.0 MG/DL Urine Leukocyte Esterase NEGATIVE NEGATIVE Urine RBC (Auto) NEGATIVE NEGATIVE Urine RBC NONE /HPF Urine WBC NONE /HPF Urine Squamous Epithelial Cells RARE /HPF Urine Crystals NONE /LPF Urine Amorphous Sediment MOD DARYA PHOSPHATE H /LPF Urine Bacteria NEGATIVE /HPF Urine Casts NONE /LPF Urine Mucus NEGATIVE /LPF Urine Culture Indicated NO My Orders Orders - MICHAEL MILLER MD Cbc With Automated Diff (02/28/19 14:31) Comprehensive Metabolic Panel (02/28/19 14:31) Magnesium (02/28/19 14:31) Ua Culture If Indicated (02/28/19 14:31) Ed Iv/Invasive Line Start (02/28/19 14:31) Levetiracetam Tablet (Keppra Tablet) (02/28/19 16:45) Vital Signs/I&O 02/28/19 02/28/19 13:51 17:05 Temp 36.7 36.7 Pulse 73 62 Resp 20 17 B/P (MAP) 135/90 (105) 105/57 (105) Pulse Ox 100 99 O2 Delivery Room Air Room Air Blood Pressure Mean: 105 POS Progress Progress Note : Progress Note Clinical presentation seems plausible for seizure with postictal state. Lab workup was unremarkable. I discussed the risks and benefits further evaluation with CT of the head. Patient elects to pursue MRI as an outpatient rather than CT now. We also discussed the risks and benefits of starting antiepileptic medication now. Patient elects to start medication at this time. First dose of Keppra was administered in the ER. She was advised that she should not drive for 6 months prior to suspected seizure. She was advised follow-up with her neurologist as soon as possible. She was also advised to have an MRI arranged as an outpatient as soon as possible. Departure Impression Primary Impression: Seizure-like activity Disposition: 01 HOME, SELF-CARE Condition: Improved Departure-Patient Inst. Decision time for Depature: 16:42 Referrals: JAZZY ROONEY DO (PCP/Family) Primary Care Physician Patient Instructions: Seizures, Adult (DC) Add. Discharge Instructions: Please follow-up with Dr. Grewal and Dr. Dunbar as soon as possible. In the meantime, continue taking Keppra until otherwise instructed. State law prohibits driving within 6 months of having a suspected seizure. Please discuss outpatient MRI with Dr. jason office. Return to care if you have any concerned about worsening symptoms. All discharge instructions reviewed with patient and/or family. Voiced unders tanding. Scripts Levetiracetam (Keppra) 500 Mg Tablet 500 MG PO BID, #60 TAB Prov: MICHAEL MILLER MD 02/28/19 Copy Copies To 1: JAZZY ROONEY JOSHUA T MD Feb 28, 2019 16:43 POS
[2019-02-28] MEDS ORDERED: LEVETIRACETAM 500 MG (KEPPRA) TAB PO ONE (16:45)
[2019-02-28 17:05] VITALS: BP 105/57
== END 2019-02-28 17:06 | disposition home or self-care (01) ==
LOC: EDUNIT# 13:41 → ER 13:42
DX: G40.909 Epilepsy, unspecified, not intractable, without status epilepticus (principal); J45.909 Unspecified asthma, uncomplicated; F32.9 Major depressive disorder, single episode, unspecified
CPT/HCPCS: 36415; 80053; 81000; 83735; 85025